=== PATIENT | female | born 1955 | race Caucasian/White ===

== ENCOUNTER 2023-03-23 15:56 | Emergency (ER) | payer MEDICARE, OTHER, SELFPAY ==
--- NOTE | ~2023-03-23 | XR_ITS ---
XR wrist RT min 3V DATE: 03/23/2023 16:19 INDICATION: Injury, dorsal radial pain TECHNIQUE: 4 views COMPARISON: None FINDINGS: There is a comminuted intra-articular fracture of the distal radius with up to 2.6 mm dorsa l displacement. There is approximately 18 degrees apex anterior angulation. There is a distally displaced fracture of the ulnar styloid process. Radiocarpal alignment is intact. IMPRESSION: Comminuted intra-articular fracture of distal radius with 2.6 mm dorsal displacement and approximately 18 degrees apex anterior angulation Fracture of ulnar styloid process Reviewed, dictated and finalized at location A. IMPRESSION: Comminuted intra-articular fracture of distal radius with 2.6 mm do rsal displacement and approximately 18 degrees apex anterior angulation Fracture of ulnar styloid process
[2023-03-23 16:09] VITALS: BP 120/80; PULSE 86; RESP 18; TEMP 36.7; O2SAT 100
--- NOTE | 2023-03-23 17:08 | ED.UPPEXIN ---
HPI - Extremity Injury (Upper) General Chief Complaint: Extremity Injury, Upper Stated Complaint: Fall Injury/Right Wrist Time Seen by Provider: 03/23/23 16:20 Source: patient, family, RN notes reviewed and old records reviewed Mode of arrival: ambulatory Limitations: no limitations History of Present Illness HPI narrative: 67-year-old female presents to [facility] accompanied by her with complaints of falling backward tripping over a stone and she put her hand back to try to brace fall which occurred this afternoon around 1430. Patient has pain and swelling to the right wrist with pain with any attempt to move her her wrist area. Patient denies any tingling or numbness to her fingers with nail beds having brisk capillary refill, strong radial pulses present. MD complaint: injury to: right and wrist Onset (ago): hour(s) (1430 today) Other injuries: none Handedness: right Place: outdoors Severity scale (1-10): 6 Exacerbating factors: movement of extremity Treatments prior to arrival: cold therapy Related Data Home Medications Medication Instructions Recorded Confirmed ascorbic acid (vitamin C) 500 mg 500 mg PO DAILY 03/02/20 03/23/23 capsule cholecalciferol (vitamin D3) 25 25 mcg PO DAILY 03/02/20 03/23/23 mcg (1,000 unit) capsule esomeprazole magnesium 40 mg 40 mg PO DAILY 03/02/20 03/23/23 capsule,delayed release evening primrose oil 500 mg capsule 500 mg PO TID 03/02/20 03/23/23 glucosamine [id number]-Fxeyawdtd 1 tablet PO DAILY 03/02/20 03/23/23 darrick 1,500 mg-400 unit-100 mg tablet (Osteo Bi-Flex (5-Loxin)) lactobacillus combination no.8 3 3,000 mmu cells PO DAILY 03/02/20 03/23/23 billion cell capsule (Adult Probiotic) loratadine 10 mg tablet (Claritin) 10 mg PO DAILY 03/02/20 03/23/23 multivitamin-ferrous 1 tablet PO DAILY 03/02/20 03/23/23 fumarate-folic acid 18 mg-400 mcg tablet (Centrum) vit C,E,zinc,copper-wtska4r 250 1 cap PO DAILY 03/02/20 03/23/23 mg-lutein 5 mg-zeaxanthin 1 mg capsule (Ocuvite Adult 50 Plus) vitamins-lipotropics 200 mg-100 mg 1 tablet PO DAILY 03/02/20 03/23/23 tablet (Lipo-Flavonoid Plus) Allergies Allergy/AdvReac Type Severity Reaction Status Date / Time cephalexin Allergy Unknown Rash Verified 03/23/23 16:14 erythromycin base Allergy Unknown increased Verified 03/23/23 16:14 heart rate hydrogen peroxide Allergy Unknown extreme Verified 03/23/23 16:14 localized pain to the area. ibuprofen Allergy Unknown Rash Verified 03/23/23 16:14 naproxen Allergy Unknown abdominal Verified 03/23/23 16:14 pain. Review of Systems Review of Systems: CONSTITUTIONAL: Denies fever, chills, or sweats. EYES: Denies visual changes, redness, or discharge. ENT: Denies rhinorrhea, congestion, sore throat, or otalgia. CARDIOVASCULAR: Denies chest pain, palpitations, or edema. RESPIRATORY: Denies cough or dyspnea. GASTROINTESTINAL: Denies abdominal pain, nausea, vomiting, or diarrhea. GENITOURINARY: Denies dysuria or hematuria. SKIN: Denies rash or itching. MUSCULOSKELETAL: Denies back pain, positive for pain to her right wrist with inability to flex or extend wrist joint, myalgia. NEUROLOGIC: Denies headache, numbness, or weakness. PSYCHIATRIC: Denies anxiety or depression. All systems reviewed & are unremarkable except as noted in HPI and below PMFSH Past Medical History Medical History History of breast cancer Hx of brachytherapy Surgical History Surgical History History of lumpectomy of left breast Social History Social History Smoking status: Never smoker Alcohol intake: never Substance use: never Lack of Transportation: No Lack of Food: Never True Current Housing: I Have Housing Concerned About Future Housing: No Difficulty Paying Gas/Electric Bills:
== END 2023-03-23 17:50 | disposition home or self-care (01) ==
PROVIDERS: Emergency Provider Registered Nurse; PCP Family Medicine
DX: S52.501A Unspecified fracture of the lower end of right radius, initial encounter for closed fracture (principal); S52.611A Displaced fracture of right ulna styloid process, initial encounter for closed fracture; W01.198A Fall on same level from slipping, tripping and stumbling with subsequent striking against other object, initial encounter; Z85.3 Personal history of malignant neoplasm of breast
CPT/HCPCS: 29125; 73110; 99214; A4565; G0463

== ENCOUNTER 2023-03-28 01:11 | Day surgery (SDC) | payer MEDICARE, OTHER, SELFPAY ==
--- NOTE | 2023-03-26 13:56 | PC.NURSE ---
Report to the Outpatient Waiting Room, entrance under the green pavilion located off [facility], at time _1100 on date __03/28/23 . Planned Procedure Time: __1300 . Time changes happen often and if your time is changed the preop area will call you the afternoon before. - You and your visitor will be asked to self-screen and do not enter if you have any COVID symptoms. - A mask is optional within the hospital at this time. Patients may have clear liquids (water, carbonated beverages, clear teas, apple juice) until 3 hours prior to surgery with a maximum of 20 ounces. - No food from midnight until time of surgery - Infants may have breast milk until 4 hours before surgery, infant formula 6 hours prior to surgery. - Children will be allowed to drink immediately following surgery. If applicable, please bring a bottle or sippy cup to assist with drinking. Juice, water, soda, and popsicles are readily available. For infants on formula, please bring formula the day of surgery. Pacifiers are allowed. Take the following medications with a SIP of water the morning of surgery: ___NONE DO NOT STOP ANY OF YOUR OTHER PRESCRIPTION MEDICATIONS PRIOR TO SURGERY ?EXCEPT THE FOLLOWING Medications to discontinue per physician ALL VITAMINS/SUPPLEMENTS 3 DAYS PRE OP LAST DOSE_03/26/23 Please no make-up, nail congolese, hairspray, perfume, deodorant, or body powder the day of surgery. No jewelry (including any body piercings) or valuables the day of surgery, leave them at home. Please take a shower or bath the night before, or the morning of, surgery with an antibacterial soap. Wear comfortable, loose fitting clothing. Children are encouraged to wear pajamas. - Jewelry must be removed prior to entering the operating room. Rings and piercings that are not removed may be cut off. - The hospital will not accept responsibility for valuables. - Please leave all valuables, including medications, at home the day of surgery. If you are going home after surgery, a licensed truck driver supervisor must drive you home. - NO public transportation without another adult if you receive anesthesia. - We recommend that an adult stay with you for 24 hours following discharge. - We also recommend that you do not drive, make important decision, drink alcoholic beverages, or take any drugs that were not prescribed by your health care provider for at least 24 hours after your discharge time. For Pediatric surgeries, we recommend two adults accompany the child home. Follow any additional instructions given to you from your surgeon. If you or anyone in your household have experienced Covid symptoms in the past week, please notify your surgeon or the nurse liaison at the phone number below for possible testing. Telephone instructions given to __PATIENT and asked if any additional questions and then verbalized understanding. Patient advised to call surgeon office or pre surgery nurse liaison [phone] if any additional questions.
[2023-03-26 14:01] VITALS: BMI 27.6
--- NOTE | 2023-03-27 09:21 | WPDANESEPPF ---
Anes - Initial Pre Proc Eval Procedure: Operation Date: 03/28/23 13:00 Proposed Procedures p Open Reduction Internal Fixation Right Distal Radius - Quoc Winslow MD Date/Time: 03/27/23 09:21 Surgeon: Quoc Winslow MD Pre Op Diagnosis: right distal radius fx Patient Data Age: 67 Gender: F Height: 1.63 m Weight: 73.05 kg Allergies Allergy/AdvReac Type Severity Reaction Status Date / Time cephalexin Allergy Unknown Rash Verified 03/28/23 11:16 erythromycin base Allergy Unknown increased Verified 03/28/23 11:16 heart rate hydrogen peroxide Allergy Unknown extreme Verified 03/28/23 11:31 localized pain to the area. ibuprofen Allergy Unknown Rash Verified 03/28/23 11:16 naproxen Allergy Unknown abdominal Verified 03/28/23 11:16 pain. Home Medications Medication Instructions Recorded Confirmed Type ascorbic acid (vitamin C) 500 mg 500 mg PO DAILY 03/02/20 03/28/23 History capsule cholecalciferol (vitamin D3) 25 25 mcg PO DAILY 03/02/20 03/28/23 History mcg (1,000 unit) capsule evening primrose oil 500 mg capsule 500 mg PO DAILY 03/02/20 03/28/23 History glucosamine JXc-R0-Ulbxuofns 1 tablet PO DAILY 03/02/20 03/28/23 History darrick 1,500 mg-400 unit-100 mg tablet (Osteo Bi-Flex (5-Loxin)) lactobacillus combination no.8 3 3,000 mmu cells PO DAILY 03/02/20 03/28/23 History billion cell capsule (Adult Probiotic) loratadine 10 mg tablet (Claritin) 10 mg PO DAILY 03/02/20 03/28/23 History multivitamin-ferrous 1 tablet PO DAILY 03/02/20 03/28/23 History fumarate-folic acid 18 mg-400 mcg tablet (Centrum) vit C,E,zinc,copper-unqsf9e 250 1 cap PO DAILY 03/02/20 03/28/23 History mg-lutein 5 mg-zeaxanthin 1 mg capsule (Ocuvite Adult 50 Plus) vitamins-lipotropics 200 mg-100 mg 1 tablet PO DAILY 03/02/20 03/28/23 History tablet (Lipo-Flavonoid Plus) Patient hx anesthesia problems: none Family hx anesthesia problems: none Results Review: All pre-operative results and documents have been reviewed as part of the pre-operative evaluation. [facility] Past Medical History Medical History (Updated 03/26/23 @ 11:16 by Quoc Winslow MD) Fracture of right ulnar styloid March 2023 History of breast cancer Hx of brachytherapy Intra-articular fracture of distal end of right radius with volar angulation March 2023 Surgical History Surgical History History of lumpectomy of left breast Family History Family History Mother Breast cancer Hypertension Father Heart disease Heart attack Sibling Stargardts disease Social History Social History Smoking status: Never smoker Alcohol intake: never Substance use: never Lack of Transportation: No Lack of Food: Never True Current Housing: I Have Housing Concerned About Future Housing: No Difficulty Paying Gas/Electric Bills: No Difficulty Paying for Meds: No Currently Unemployed: No Education: Bachelor's Degree Difficulty w/ Childcare or Family Care: No Living arrangements: with family Occupation/Education: occupation 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 Informed Consent: The patient's anesthetic plan and its attendant risks and benefits were discussed wi
[2023-03-28] VITALS (7 sets, daily range): BP systolic 106–125; BP diastolic 53–88; PULSE 86–102; RESP 14–18; TEMP 36.3–36.8; O2SAT 14–100
--- NOTE | ~2023-03-28 | XR_ITS ---
EXAMINATION: XR surgery orthopedic DATE: 03/28/2023 14:42 INDICATION: ORIF right wrist fracture TECHNIQUE: 2 fluoroscopic images of the right wrist were obtained in dorsal palmar and lateral projec tions during procedure performed by Dr. Winslow. Radiologist was not present for the imaging or procedur e. The amount of fluoroscopy time used during this procedure was 0.4 minutes. COMPARISON: 03/23/2023 FINDINGS: Line interval open reduction and volar T plate and screw internal fixation of a comminuted fracture of the distal right radius which is now in near-anatomic alignment. Persistent distraction o f an ulnar styloid process avulsion fracture which remains unfixed. No new fractures identified. Prof iled joint spaces at the right hand and wrist appear normal. IMPRESSION: 1. Near-anatomic alignment post open reduction and volar T plate and screw fixation of a comminuted d istal right radial fracture. See procedure note for further detail. Reviewed, dictated and finalized at location A. IMPRESSION: 1. Near-anatomic alignment post open reduction and volar T plate and screw fixa tion of a comminuted distal right radial fracture. See procedure note for furth er detail.
[2023-03-28] MEDS: ACETAMINOPHEN 500 MG TABLET 1000 MG PO (11:29)
--- NOTE | 2023-03-28 12:37 | WPDANESPNB ---
Anes - Peripheral Nerve Block Date/Time: 03/28/23 12:37 I have discussed with the patient/family/POA the placement of a peripheral nerve block for post-operative pain management, including associated risks, benefits, complications, and side effects. Alternative methods of post-operative analgesia were detailed. Questions were solicited and answers provided to the satisfaction of the patient/family/POA. Time-Out: A pre-procedural Time-Out was completed immediately before starting the procedure and confirmed: Patient Identification, Site, Procedure, Patient Position and the Availability of Requisite Equipment. Clinical Indications: Acute post-operative pain management requested by the operative surgeon. Nerve Block Insertion Note Anes-nerve block: supraclavicular right Patient position: supine Skin prep: chlorhexidine Needle: 22 gauge, stimulating, insulated echogenic needle. Needle length: 50 mm Technique: ultrasound Injectate: bupivacaine 0.5% with epi 5 mcg/ml (30cc- no epi) Observations: tolerated well Complications: none Procedure start time:: 1311 Procedure end time:: 1315
[2023-03-28] MEDS: LACTATED RINGERS 1,000 ML 30 ML IV CONT ×2 (12:45→14:58)
--- NOTE | 2023-03-28 12:46 | WPDHPUPDATE1 ---
History and Physical Update Update Date/Time: 03/28/23 12:46 History and Physical has been reviewed, including an updated exam of the patient. There are NO changes in the patient's condition. Risks, benefits, and alternatives have been discussed and questions answered. Patient agrees to proceed with procedure.
--- NOTE | 2023-03-28 12:51 | SUR.PREOP ---
1145- PT FX RIGHT ARM. OVER 15 YEARS AGO PT HAD BREAST CA AND HAD A LUMPECTOMY AND LYMPH NODE REMOVED. PT ONLY HAS LEFT ARM TO USE FOR SURGERY. SPOKE TO PT AND SHE STATED THAT WE CAN USE HER LEFT ARM. NO PAIN OR SWELLING. PT STATED BP HAVEN BEEN TAKEN AND BLOOD WORK. SPOKE WITH ANESTHESIA AND DR. CARRASQUILLO. BOTH OK'ED PIV PLACED IN LEFT ARM FOR PROCEDURE. PT RIGHT ARM IN SPLINT AND FX.
[2023-03-28] MEDS: CLINDAMYCIN 900 MG/D5W 50 ML 900 MG/50 ML PIGGYBACK 50 MG IVPB (13:24)
--- NOTE | 2023-03-28 15:02 | W.PM.PROC2 ---
Procedure Note - Detailed Date of Procedure 03/28/23 Pre-op Diagnosis right distal radius fx Post-op Diagnosis Same Procedure Performed ORIF right distal radius Surgeon Quoc Winslow MD Administrative Representative Pao Boyle Anesthesia General and Regional Description of Procedure The patient was identified and the proper side identified. In the preop holding area, the anesthesia team performed a right upper extremity block. She was taken back to the operating room, transferred to the or table positioning supine taking care to pad her torso and extremities. After general anesthetic induction and intubation, a nonsterile tourniquet was placed high on the right arm which was prepped and draped in the usual sterile fashion. The extremity was exsanguinated and tourniquet inflated to 250 mmHg remaining up for approximately 56 minutes. A volar longitudinal incision was made along the FCR tendon distally. The subcutaneous tissue was sharply dissected protecting neurovascular structures. The FCR tendon was released from its sheath and retracted ulnarly. This allowed for the deep fascia of the forearm to be divided longitudinally in line with the incision. Care was taken to protect the volar compartment structures as well as the radial nerve and radial vascular structures. The pronator quadratus was elevated off of the distal radius allowing for inspection of the fracture site. The fracture fragments were disimpacted and able to be realigned virtually anatomically with fluoroscopic assistance. They were secured in this position with a wide, long volar plate from the DVR set. The plate was applied with fluoroscopic visualization to avoid penetration of the joint and to ensure optimal hardware placement. Once the plate was secure the overall construct was assessed fluoroscopically on the AP and lateral views. The virtually anatomic reduction was held very nicely. The construct was stable. The wound was irrigated with a copious amount of sterile antibiotic solution. Skin edges were reapproximated with 3-0 Stratafix and tissue adhesive. Sterile dressing was applied. Tourniquet was released. A well-padded short-arm volar wrist splint was fashioned. The procedure was well tolerated. There were no known intraoperative complications. Estimated blood loss was negligible. Estimated Blood Loss 5 Tourniquet Time 56 Drains No Packing No Pathology None sent Complications No immediate complications Condition Stable Disposition PACU [facility] Billing Surgery - Charge Forward: Surgery Billing ([id number], [id number])
== END 2023-03-28 16:43 | disposition home or self-care (01) ==
PROVIDERS: PCP Family Medicine; Visit Provider Orthopaedic Surgery
PROC: (CPT 25575; principal; 2023-03-28 13:00)
DX: S52.571A Other intraarticular fracture of lower end of right radius, initial encounter for closed fracture (principal); S52.611A Displaced fracture of right ulna styloid process, initial encounter for closed fracture; G89.18 Other acute postprocedural pain; W19.XXXA Unspecified fall, initial encounter
CPT/HCPCS: 25608; 64415; 99199; A4565; A9270; C1713; J1100; J2250; J2405; J2704; J3010; J7120

== ENCOUNTER → 2023-04-10 07:33 | Outpatient (CLI) | payer MEDICARE, OTHER, SELFPAY ==
--- NOTE | ~2023-04-10 | XR_ITS ---
EXAMINATION: XR wrist RT min 3V DATE: 04/10/2023 08:01 INDICATION: Distal right radius fracture. TECHNIQUE: 3 views of right wrist were obtained. COMPARISON: Right wrist radiograph 03/23/2023 FINDINGS: There is a comminuted fracture of distal radius in near-anatomic alignment status post open reduction internal fixation with volar plate and screws. There is an avulsion fracture of the ulnar- sided. Cast material obscures fine bone detail. Joint spaces are normal. IMPRESSION: 1. Comminuted fracture of distal radius status post open reduction internal fixation. 2. Avulsion fracture of the ulnar styloid. Reviewed, dictated and finalized at location A. IMPRESSION: 1. Comminuted fracture of distal radius status post open reduction internal fix ation. 2. Avulsion fracture of the ulnar styloid.
== END ==
PROVIDERS: PCP Family Medicine; Visit Provider Nurse Practitioner
DX: S52.571D Other intraarticular fracture of lower end of right radius, subsequent encounter for closed fracture with routine healing (principal); S52.611D Displaced fracture of right ulna styloid process, subsequent encounter for closed fracture with routine healing; X58.XXXD Exposure to other specified factors, subsequent encounter
CPT/HCPCS: 73110

== ENCOUNTER 2023-07-10 10:30 | Outpatient (RCR) | payer MEDICARE, OTHER, SELFPAY ==
--- NOTE | 2023-05-09 13:41 | OTOPEVAL1 ---
Assessment and note entered by Gurjit Lynch, ABHISHEK/Justo, CHT Evaluation Information Assessment Status Evaluation Diagnosis 6 weeks s/p ORIF right distal radius Subjective Information Patient sustained a right distal radius fracture after falling onto an outstretched hand. She is s/ p ORIF. Presents to therapy today to begin ROM and to begin weaning process out of the splint. She is right handed and still works. Uses a computer and talks on the phone. Reported Pain Level Pain Score 0: Self Report Assessment OT Clinical Summary Patient referred to outpatient OT with dx of right distal radius fracture s/p ORIF x6 weeks ago. She presents with stiffness, weakness, and edema that is restricting her return to functional use. Skilled OT indicated to maximize functional ROM and strength of the right hand/wrist/UE to facilitate return to functional use. Plan of Care Interventions Therapeutic Exercise,Manual Therapy,Neuro Re- education,Therapeutic Activities,Hot Pack/Cold Pack,Paraffin OT Services Indicated Yes Treatment Frequency and 2x/week for 5 weeks Duration These treatments will address the objective and functional deficits as defined above. The patient will be advanced safely and appropriately in order for the patient to progress towards his/her prior level of function. Additional exercises will be introduced and as well as a comprehensive home exercise program upon discharge, if needed, ?to ensure carryover of functional gains achieved in the clinic. This treatment plan has been reviewed and agreement upon by the patient.
--- NOTE | 2023-05-09 13:41 | OPREHPOC ---
Outpatient Therapy Plan of Care This is a Multidisciplinary Plan of Care that may contain components documented by all disciplines (PT, OT, and ST.) OT Problem 1 OT Problem #1 Knowledge Deficit OT Goal 1 Goal 1. Patient to be independent with instructed materials. Target Visit 11 OT Problem 2 OT Problem #2 Impaired Range of Motion OT Goal 1 Goal Increase active ROM of the right UE: 1. supination to 45 2. wrist extension to 30 3. wrist flexion to 50 4. be able to touch the finger tips to the palm OT Problem 3 OT Problem #3 Impaired Strength OT Goal 1 Goal 1. 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 Target Visit 11
--- NOTE | 2023-06-19 12:03 | OTOPPROG ---
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 She reports being unable to peel a potato or lift heavy items. ROM is making excellent progress. At the start of care she was unable to supinate past neutral. Today measures 70 degrees. Pronation improved to 80 degrees. At the start of care she was unable to extend her wrist past neutral. Today wrist extension is measuring 35 degrees actively and 45 passively. Wrist flexion improved to 40 degrees. Gross finger flexion is improving from a 6-7 cm gap between the finger tip and the palm to 1-2 cm gap actively. Passive is WNL. Assessment OT Clinical Summary Patient referred to outpatient OT with dx of right distal radius fracture s/p ORIF x12 weeks ago. She is making excellent progress with therapy, improving with ROM and functional strength, which is carrying over into improved functional use for ADLs. Continued skilled OT indicated for HEP progression, use of modalities, manual therapy, and functional therapeutic exercise to maximize functional right UE use. Plan of Care Interventions Therapeutic Exercise,Manual Therapy,Neuro Re- education,Therapeutic Activities,Hot Pack/Cold Pack,Paraffin OT Services Indicated Yes Treatment Frequency and 1x/week for 4 weeks Duration These treatments will address the objective and functional deficits as defined above. The patient will be advanced safely and appropriately in order for the patient to progress towards his/her prior level of function. Additional exercises will be introduced and as well as a comprehensive home exercise program upon discharge, if needed, ?to ensure carryover of functional gains achieved in the clinic. This treatment plan has been reviewed and agreement upon by the patient.
--- NOTE | 2023-07-10 10:59 | OTOPDC ---
Assessment and note entered by Gurjit Lynch, ABHISHEK/Justo, CHT Discharge Summary 07/10/23 Diagnosis s/p ORIF right distal radius Subjective Information Patient reports she had her last follow up with MD today and she is released. She presents today stating she is ready to wrap up with therapy, which is appropriate as she is doing very well and independent with all materials. Functionally she reports very little deficit - occasionally she cannot open a jar, otherwise she is using her hand for everything. ROM is making excellent progress. At the start of care she was unable to supinate past neutral. Today measures 75 degrees. Pronation improved to 80 degrees. At the start of care she was unable to extend her wrist past neutral. Today wrist extension is measuring 40 degrees actively and 55 passively. Wrist flexion improved to 45 degrees. Gross finger flexion is now WFL, finger tips now touch the palm. Operations Lead strength improved to 33 lbs. Assessment OT Clinical Summary Patient referred to outpatient OT with dx of right distal radius fracture s/p ORIF x15 weeks ago. She has made excellent progress with therapy and has been very compliant with her HEP. Reviewed HEP and discussed recommended exercises for her to continue for 2-3 more months. Discharging from therapy with patient independent with all materials. Plan of Care OT Services Indicated No
== END 2023-07-15 07:17 | disposition home or self-care (01) ==
LOC: ANHOT 10:30
PROVIDERS: PCP Family Medicine; Visit Provider Orthopaedic Surgery
DX: S52.571D Other intraarticular fracture of lower end of right radius, subsequent encounter for closed fracture with routine healing (principal); S52.611D Displaced fracture of right ulna styloid process, subsequent encounter for closed fracture with routine healing
CPT/HCPCS: 97018; 97110; 97140; 97165